=== PATIENT | male | born 1995 | race Caucasian/White ===

== ENCOUNTER 2025-07-08 10:09 | Outpatient (CLI) | payer OTHER, SELFPAY ==
--- OUTSIDE RECORDS SUMMARY | 2025-07-08 10:13 | XMS_ITS | Clinical Summary ---
Author Organization 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 Active clindamycin (CLEOCIN) 300 mg Oral CapsuleIndicatio ns:Exudative tonsillitis Take 1 Cap by mouth 4 times daily. 40 Cap 0 6 Active Additional Information Patient not taking.Reason: Other, Reported on 09/11/2016 Active Problems No known active problems Surgical History Surgery Date Site/Laterality Comments DENTAL SURGERY Medical History Medical History Date Comments Asthma Social History Tobacco Use Types Packs/Day Years Used Date Smoking Tobacco: Never Alcohol Use Standard Drinks/Week Comments Yes 0 (1 standard drink = 0.6 oz pur e alcohol) Sex and Gender Information Value Date Recorded Sex Assigned at Not on file Legal Sex Male 11:36 AM EDT Gender Identity Not on file Sexual Orientation Not on file Last Filed Vital Signs Vital Sign Reading Time Taken Comments Blood Pressure 124/84 02/22/2017 11:02 AM EDT Pulse 76 02/22/2017 11:02 AM EDT Temperature 36.6 C (97.8 F) 02/22/2017 11:02 AM EDT Respiratory Rate 16 10/05/2016 11:14 AM EDT Oxygen Saturation 99% 02/22/2017 11:02 AM EDT Inhaled Oxygen Concentration - - Weight 91.3 kg (201 lb 3.2 oz) 02/22/2017 11:02 AM EDT Height 188 cm (6' 2 ) 10/05/2016 11:14 AM EDT Body Mass Index 25.83 10/05/2016 11:14 AM EDT Plan of Treatment Health Maintenance Due Date Last Done Comments DTaP/TDaP/Td (1 - Tdap) 2014 Hepatitis B Vaccine (1 of 3 - 19+ 3-dose series) 2014 Annual Wellness Exam 09/07/2016 09/07/2015 (Postponed) COVID-19 Vaccine ( - 2024-2 6 season) 2025 Influenza Vaccine (#1) 2025 6 (Declined) Meningococcal B Vaccine Aged Out No l onger eligible based on patient's age to complete this topic Pneumococcal Vaccine 0-49 Aged Out No longer eligible based on patient's age to complete this topic Goals Goal Patient Goal Type Associated Problems Recent Progress Patient-Stated? Author Eat better, exercise, reach an ideal body weight General No Jaimee Reddy MA
[2025-07-08 10:46] LABS: Hematocrit 44.9 % (42.0-52.0); Hemoglobin 16.3 g/dL (14.1-18.0); Immature Granulocytes % 0.4 %; Mean Corpuscular HGB Conc 36.3 g/dL (31.8-35.4); Mean Corpuscular Hemoglobin 32.0 pg (27.0-31.2); Mean Corpuscular Volume 88.0 fl (80-94); Nucleated Red Blood Cells % 0 %; Platelet Count 345 K/mm3 (142-424); Red Blood Count 5.10 M/mm3 (4.60-6.20); Red Cell Distribution Width-SD 40.8 fL; White Blood Count 9.0 K/mm3 (4.8-10.8)
[2025-07-08 12:05] LABS: Alanine Aminotransferase 74 U/L (12-78); Albumin Level 4.8 g/dl (3.5-5.0); Albumin/Globulin Ratio 1.7 (1.1-1.8); Alkaline Phosphatase 78 U/L (38-126); Anion Gap 15.5 mEq/L (5-15); Aspartate Amino Transferase 52 U/L (17-59); Bilirubin,Total 0.6 mg/dl (0.2-1.3); Blood Urea Nitrogen 16 mg/dl (9-20); Calcium 10.0 mg/dl (8.4-10.2); Carbon Dioxide 23 mmol/L (22.0-30.0); Chloride 103 mmol/L (98-107); Creatinine,Serum 1.10 mg/dl (0.66-1.25); Estimated Glomerular Filt Rate 79 ml/min (>60); GFR (African American) 95 ML/MIN (>60); Globulin 2.9 g/dL (1.3-3.2); Glucose 109 mg/dl (74-100); Potassium 4.5 mmoL/L (3.5-5.1); Sodium 137 mmol/L (136-145); Total Protein,Serum 7.7 g/dl (6.3-8.2)
[2025-07-08 12:18] LABS: 25-OH Vitamin D, Total 13.3 ng/mL (30-100)
[2025-07-08 12:19] LABS: Free Thyroxine Index 2.1 ug/dL (5.93-13.13); T4 (Thyroxine) 5.6 ug/dl (5.53-11.0); Triiodothryronine (T3) Uptake 37 % (23.5-40.5)
[2025-07-08 12:33] LABS: Thyroid Stimulating Hormone 0.81 uIU/mL (0.465-4.68)
[2025-07-08 12:54] LABS: Vitamin B12 283 pg/mL (239-931)
[2025-07-09 08:24] LABS: Testosterone,Total 259 ng/dL (264-916)
== END 2025-07-08 23:59 | disposition home or self-care (01) ==
LOC: LAB 10:11
PROVIDERS: PCP Internal Medicine Adolescent Medicine; Visit Provider Internal Medicine Adolescent Medicine
DX: Z00.00 Encounter for general adult medical examination without abnormal findings (principal); R53.81 Other malaise
CPT/HCPCS: 36415; 80053; 82306; 82607; 84403; 84436; 84443; 84479; 85025